=== PATIENT | female | born 2000 | race Caucasian/White ===

== ENCOUNTER 2024-02-22 18:47 | Emergency (ER) | payer BC, SELFPAY ==
[2024-02-22 18:50] VITALS: BP 120/81
--- NOTE | 2024-02-22 19:07 | ED.GENMED ---
History of Present Illness
General
Chief Complaint: Psychiatric Problem
Source: patient and family (Mother)
Exam Limitations: none
Time Seen by Provider: 02/22/24 18:54
History of Present Illness
History of Present Illness:
This is a 23 year old female that comes in with c/o suicidal thoughts and Panic attacks. States that this started last week but she was able to do school and function. This is now the most severe it has been. States that she feels like she is having
a panic attack and she is unable to handle school. States that she went to the PCP today hoping she could just get medication but they told them to come to the ER. Mom states that she is not really eating and that this is the 4 time they have come
to try and get her help. States that She has suicidal thought but no plan. Child is tearful on exam. Denies any fever, chills, chest pain, SOB, abd pain, nausea, vomiting, diarrhea, headache, dizziness, urinary burning.
Past History
Past History
ED Past Medical History: Asthma and Psychiatric (Anxiety, Depression)
ED Past Surgical History: None
Social History
Tobacco: Smoker
Alcohol: Occasional
Personal: Single
Living: with family
Review of Systems
Review of Systems
All Other Systems: ROS reviewed and negative except as documented in HPI and ROS
Constitutional: Reports no symptoms; Denies fever or chills
EENT: Reports no symptoms
Respiratory: Denies cough or trouble breathing
Cardiac: Reports no symptoms
ABD/GI: Reports no symptoms; Denies abdominal pain, vomiting or diarrhea
: Reports no symptoms; Denies dysuria, frequency or urgency
Musculoskeletal: Reports no symptoms
Skin: Reports no symptoms
Neurological: Reports no symptoms; Denies dizzy or headache
Psychiatric: Reports no symptoms
Phy Exam
General Physical Exam
General Presentation: no apparent distress
General age: appears stated age
General Skin: warm and dry
General Habitus: normal
General Mental: tearful
General Hydration: appears well hydrated
ENT Exam
ENT Exam: TM's normal, pharynx normal and neck supple
Eye Exam
Eye Exam: EOMI
Cardiovascular Exam
Cardiovascular Exam: regular rate/rhythm, no edema, no murmur and normal peripheral pulses
Pulmonary Exam
Pulmonary Exam: lungs clear, no respiratory distress, no rales, chest non tender, no crackles, no rhonchi, no wheezing and no cough
Gastrointestinal Exam
Gastrointestinal Exam: normal bowel sounds, non tender, soft, no organomegaly, no pulsatile mass and non distended
Musculoskeletal Exam
Musculoskeletal Exam: full ROM and no edema
Skin Exam
Skin Exam: normal color, warm/dry, no rash and no petechia
Psychiatric Exam
Psychiatric Exam: depressed and suicidal
Course
Orders/Labs/Results
Orders:
Orders
02/22/24 18:50
1:1 Observation - Suicide/ Violent Behavior As Directed
02/22/24 19:06
Test Result ONCE
02/22/24 19:07
Crisis Consult Urgent
Reason for Consult: Panic disorder Suicidal thoughts
02/22/24 19:29
Complete Blood Count/With Diff Urgent
Comprehensive Metabolic Panel Urgent
HCG, Serum Qualitative Screen Urgent
Urinalysis Reflex To Culture Urgent
Date Specimen was Collected: 02/22/24
Time Specimen was Collected: 19:12
Urine Microscopic Reflex Cult Urgent
02/22/24 19:30
Urine Drug Abuse Screen Urgent
Date Specimen was Collected: 02/22/24
Time Specimen was Collected: 19:27
Abnormal Lab Results
02/22/24 02/22/24
19:29 19:30
RBC 4.01 L 10^6/uL
(4.20-5.40)
Hct 34.2 L %
(37.0-47.0)
MCH 31.2 H pg
(27.0-31.0)
Carbon Dioxide 20 L mmol/L
(22-30)
Glucose 102 H mg/dl
(70-99)
Calcium 10.3 H mg/dl
(8.4-10.2)
Urine Ketones 3+ A
(Negative)
Ur Occult Blood Reflex 2+ A
(Negative)
Urine Bilirubin 1+ A
(Negative)
Leukocyte Esterase Rfl Trace A
(Negative)
Urine RBC 7-10 A /HPF
(0-2)
Urine Albumin (Reflex) 2+ A
(Neg - Trace)
U Marijuana (THC) Screen Positive H
(Negative)
02/22/24 19:29
02/22/24 19:29
CARBON DIOXIDE SLIGHTLY LOW. URINE NEGATIVE FOR INFECTION. Urine drug positive for Marijuana. HCG negative.
Vital Signs
Initial and Last Documented VS:
Initial Vital Signs
Temp Pulse Resp BP Pulse Ox
97.8 F 101 20 120/81 97
02/22/24 18:50 02/22/24 18:50 02/22/24 18:50 02/22/24 18:50 02/22/24 18:50
Last Documented Vital Signs
Temp Pulse Resp BP Pulse Ox
97.8 F 84 16 112/84 99
02/22/24 18:50 02/22/24 20:00 02/22/24 20:00 02/22/24 20:00 02/22/24 20:50
MDM/Problems Addressed
Differential Diagnosis Includes:
Depression, Suicidal
MDM/Problems Addressed:
This is a 23 year old female that is brought in by mom with suicidal thoughts and tearful. States that she is unable to handle school. Mom staes that this has been cyclical and this is the 4th time they area hear. States that she has said before
that she wants to .
will get labs, Urine and Have crisis see patient.
Patient was seen by Crisis and she has decided to go inpatient for treatment. Crisis will look for a bed.
Patient going over to Crisis.
Chronic conditions affecting care: Psychiatric illness
Acute Exacerbation and/or Progression of Chronic Illness: Psychiatric illness
*Pulse Oximetry
Patient hypoxic: no
*EKG
Interpreted by ED Provider?: NA
Rate: EKG- N/A
*Wet Machine Tender Interpretation
Rate: Wet Machine Tender- N/A
*Critical Care Note
Total Time (30-74mins, 75-104mins- exclusive of procedures): Not Applicable
ED Attending Note
-
Portions of this chart may have been created with voice recognition software.� Occasional wrong word or��sound alike� substitutions may have occurred due to the inherent limitations of voice recognition software.
Discharge Plan
Departure
Patient Disposition: [facility]
Date of Disposition: 02/22/24
Time of Disposition: 20:30
Patient with high blood pressure during this ER visit?: No
Condition: Good
Covid-19: Not Applicable
Discharge Problem:
Depression, Unable to do daily activities, Suicidal thoughts
Referrals:
UNKNOWN - PT DOES,NOT KNOW [Family Provider] -
Activity Restrictions/Additional Instructions:
Please follow up as directed by Crisis.
Interventions
Interventions:
*Risk Screen - Suicide Last Done: 02/22/24 18:50
*General Assessment Last Done: 02/22/24 18:50
*Neglect/Abuse Screening Last Done: 02/22/24 18:50
ED- Fall Risk Assessment Last Done: 02/22/24 20:50
*ED COVID-19 Vaccine History Last Done: 02/22/24 20:50
*Nursing Disposition Last Done: 02/22/24 20:50
ED-Psychological Assessment Last Done: 02/22/24 20:51
Discharge Date and Time
Print Language: MALAGASY
[2024-02-22 19:44] LABS: % Basophils 0.9 % (0-2); % Eosinophils 0.6 % (0-6); % Immature Granulocytes 0.2 % (0-0.5); % Lymphocytes 30.8 % (20.5-51.1); % Monocytes 8.1 % (1.7-9.3); % Neutrophils 59.4 % (42.2-75.2); Absolute Basophils 0.1 10^3/uL (0-0.2); Absolute Monocytes 0.5 10^3/uL (0.1-0.6); Absolute Neutrophils 3.8 10^3/uL (1.4-6.5); Hematocrit 34.2 % (37.0-47.0); Hemoglobin 12.5 g/dL (12.0-16.0); Mean Corp Hgb Conc. 36.5 g/dL (33.0-37.0); Mean Corpuscular Hgb 31.2 pg (27.0-31.0); Mean Corpuscular Volume 85.3 fL (81.0-99.0); Mean Platelet Volume 9.6 fL (7.4-10.4); Nucleated Red Blood Cells % 0 %; Platelet Count 265 10^3/uL (130-400); Red Blood Cell Count 4.01 10^6/uL (4.20-5.40); Red Cell Dist. Width 11.9 % (11.5-14.5); Urine Albumin 2+ (Neg - Trace); Urine Bilirubin 1+ (Negative); Urine Character Clear (Clear); Urine Color Yellow; Urine Glucose Negative (Negative); Urine Ketone 3+ (Negative); Urine Leukocyte Trace (Negative); Urine Nitrite Negative (Negative); Urine Occult Blood 2+ (Negative); Urine Specific Gravity 1.025 (<1.030); Urine Urobilinogen 1+ (Neg - 1+); White Blood Cell Count 6.3 10^3/uL (4.8-10.8)
[2024-02-22 19:56] LABS: Amphetamines Negative (Negative)
[2024-02-22 19:57] LABS: Barbiturates Negative (Negative); Benzodiazepines Negative (Negative); Buprenorphine Negative (Negative); Cocaine Negative (Negative); Marijuana Positive (Negative); Methadone Negative (Negative); Methamphetamines Negative (Negative); Opiates Negative (Negative); Phencyclidine Negative (Negative); Tricyclic Antidepressants Negative (Negative)
[2024-02-22 20:00] VITALS: BP 112/84
[2024-02-22 20:01] LABS: HCG, Serum Qualitative Screen Negative
[2024-02-22 20:03] LABS: ALT (SGPT) 18 U/L (0-35); AST (SGOT) 21 U/L (14-36); Albumin 4.8 g/dl (3.5-5.0); Alkaline Phosphatase 64 U/L (38-126); Blood Urea Nitrogen 12 mg/dl (7-17); Calcium 10.3 mg/dl (8.4-10.2); Carbon Dioxide 20 mmol/L (22-30); Chloride 104 mmol/L (98-107); Glucose 102 mg/dl (70-99); Potassium 4.2 mmol/L (3.5-5.1); Sodium 140 mmol/L (135-145); Total Bilirubin 1.1 mg/dl (0.2-1.3); Total Protein 7.4 g/dl (6.3-8.2); eGFR > 60.00
[2024-02-22 20:05] LABS: Urine Mucus Many
== END 2024-02-22 20:50 ==
LOC: EMR 18:47
PROVIDERS: Clinical Nurse Specialist Family Health; EMERGENCY PHYSICIAN Emergency Medicine
DX: F32.A Depression, unspecified (principal); R45.851 Suicidal ideations; F41.0 Panic disorder [episodic paroxysmal anxiety]; J45.909 Unspecified asthma, uncomplicated; F41.8 Other specified anxiety disorders; F17.200 Nicotine dependence, unspecified, uncomplicated
CPT/HCPCS: 99283; 80053; 80306; 81003; 81015; 84703; 85025